=== PATIENT | male | born 1955 | race Caucasian/White ===

== ENCOUNTER → 2019-05-02 12:39 | Outpatient (CLI) | payer OTHER, SELFPAY ==
--- NOTE | 2019-05-02 12:43 | CT_ITS ---
STUDY: CT MAXILLOFACIAL SINUSES REASON FOR EXAM: Male, 63 years old. Sinusitis RADIATION DOSAGE (If Supplied By Facility): CTDIvol = ( 33.45 ) mGy, DLP = ( 1180.59 ) mGycm TECHNIQUE: The patient was scanned in a multi detector CT scanner. High resolution axial imaging was performed without the administration of intravenous contrast material. Sagittal and coronal images were reconstructed. Individualized dose optimization techniques were used for this CT. COMPARISON: None. FINDINGS: FRONTAL SINUSES: Normal aeration, without mucosal inflammatory disease. ETHMOIDAL SINUSES: Normal aeration, without mucosal inflammatory disease. MAXILLARY SINUSES: Normal aeration, without mucosal inflammatory disease. SPHENOIDAL SINUSES: Normal aeration, without mucosal inflammatory disease. There is patency of the bilateral maxillary infundibuli with normal uncinate processes, ethmoid bullae, and hiatus semilunaris. Normal bilateral middle turbinates. Normal bilateral inferior turbinates. There is a left sided nasal septal deviation, but without a nasal septal spur. There is patency of the bilateral nasal airways. The visualized osseous structures are normal. The visualized bilateral orbital contents are normal. CT/Sinus/Facial Bone IMPRESSION: No CT evidence of acute or chronic sinusitis. Slight deviation of nasal septum to the left. Patent ostiomeatal units bilaterally. Electronically Signed: Pteros Tiwari MD at 13:18 EDT Tel , Service support ,
== END ==
PROVIDERS: Referring Provider Otolaryngology; Visit Provider Otolaryngology
DX: J32.9 Chronic sinusitis, unspecified (principal)
CPT/HCPCS: 70486